=== PATIENT | female | born 1960 | race Caucasian/White ===

== ENCOUNTER 2017-06-02 16:30 | Emergency (ER) | payer BC ==
[2017-06-02 16:44] VITALS: BP 134/86
[2017-06-02] MEDS ORDERED: Doxycycline 100 MG Cap PO ONE (17:50)
--- NOTE | 2017-06-02 18:33 | EDM.PDOC ---
ED HPI GENERAL MEDICAL PROBLEM - General Chief Complaint: General Stated Complaint: FEVER FOR 5 DAYS Time Seen by Provider: 06/02/17 16:46 Source of Information: Reports: Patient History Limitations: Reports: No Limitations - History of Present Illness INITIAL COMMENTS - FREE TEXT/NARRATIVE: The patient is a 56-year-old female with a chief complaint of right foot pain and rash and feeling ill. She states that she's been having trouble with the foot for a couple of months. She states that she had what looked like insect bites on one of the toes initially that were filled with clear fluid. At some point these were lanced. Since then, this last week, she's had increased redness and pain in the foot. She saw her primary care provider who diagnosed cellulitis and put her on Bactrim. She states that she's also intermittently been using hydrocortisone and an antifungal on her foot. She comes in for evaluation today because she's been feeling ill for a few days. She's had fever as high as 101. She also has been nauseated. She's had about 1 episode of vomiting per day. Feels generally weak with malaise. No cough or shortness of breath. No abdominal pain or diarrhea. No urinary symptoms. The foot redness has not improved on Bactrim. She hasn't had any more of the vesicle lesions. No known tick bites. No additional rash. She also has a mild frontal headache that is sharp behind her eyes. No true neck stiffness though she has diffuse musculoskeletal pains. Treatments GEOLOGICAL SPECIALIST: Reports: Acetaminophen - Related Data Allergies Allergy/AdvReac Type Severity Reaction Status Date / Time No Known Allergies Allergy Verified 06/02/17 16:44 Home Meds: Home Meds Doxycycline [Vibramycin] 100 mg PO BID #20 cap 06/02/17 [Rx] valACYclovir [Valtrex] 1,000 mg PO TID #30 tablet 06/02/17 [Rx] Past Medical History Dermatologic History: Reports: Cellulitis - Past Surgical History Female Surgical History: Reports: Tubal Ligation Musculoskeletal Surgical History: Reports: Other (See Below) Other Musculoskeletal Surgeries/Procedures:: ACL repair Social & Family History - Tobacco Use Smoking Status *Q: Never Smoker Second Hand Smoke Exposure: No - Caffeine Use Caffeine Use: Reports: Coffee - Recreational Drug Use Recreational Drug Use: No ED ROS GENERAL - Review of Systems Review Of Systems: See Below Constitutional: Denies: Fever HEENT: Reports: No Symptoms Respiratory: Denies: Shortness of Breath Cardiovascular: Denies: Chest Pain Endocrine: Reports: No Symptoms GI/Abdominal: Reports: Nausea. Denies: Abdominal Pain : Reports: No Symptoms Musculoskeletal: Reports: Muscle Pain Skin: Reports: Rash ED EXAM, GENERAL - Physical Exam Exam: See Below Exam Limited By: No Limitations General Appearance: Alert, WD/WN, No Apparent Distress Eye Exam: Bilateral Eye: EOMI, Normal Inspection, PERRL Ears: Normal External Exam Nose: Normal Inspection Throat/Mouth: Normal Inspection, Normal Oropharynx, Normal Voice, No Airway Compromise Head: Atraumatic, Normocephalic Neck: Normal Inspection, Supple, Non-Tender, Full Range of Motion, Other (Mild bilateral trapezius tenderness, no neck stiffness) Respiratory/Chest: No Respiratory Distress, Lungs Clear, Normal Breath Sounds, No Accessory Muscle Use Cardiovascular: Normal Peripheral Pulses, Regular Rate, Rhythm, No Edema, No Murmur GI/Abdominal: Soft, Non-Tender, No Distention. No: Rebound Back Exam: Normal Inspection Extremities: Other (Right lower extremity: Confluent erythema, warmth, and tenderness affecting the superior surface of her right foot extending just proximal to the ankle. No fluctuance. No discrete vesicles or wounds.) Neurological: Alert, Oriented, Normal Cognition, No Motor/Sensory Deficits Psychiatric: Normal Affect, Normal Mood Skin Exam: Warm, Dry, Intact, Normal Color, No Rash Course - Vital Signs Last Recorded V/S: Last Vital Signs Temp 37.6 C 06/02/17 16:41 Pulse 101 H 06/02/17 16:41 Resp 18 06/02/17 16:41 BP 134/86 06/02/17 16:41 Pulse Ox 95 06/02/17 16:41 - Orders/Labs/Meds Orders: Active Orders 24 hr Category Date Time Status CULTURE BLOOD [BC] Stat Lab 06/02/17 17:00 Received CULTURE BLOOD [BC] Stat Lab 06/02/17 17:07 Received Blood Culture x2 Reflex Set [OM.PC] Stat Oth 06/02/17 16:47 Ordered Labs: Laboratory Tests 06/02/17 06/02/17 06/02/17 Range/Units 17:00 17:00 17:00 WBC 3.39 L (3.98-10.04) K/mm3 RBC 4.69 (3.98-5.22) M/mm3 Hgb 14.2 (11.2-15.7) gm/L Hct 41.5 (34.1-44.9) % MCV 88.5 (79.4-94.8) fl MCH 30.3 (25.6-32.2) pg MCHC 34.2 (32.2-35.5) g/dl RDW Std Deviation 40.0 (36.4-46.3) fL Plt Count 217 (182-369) K/mm3 MPV 9.2 L (9.4-12.3) fl Neut % (Auto) 80.5 H (34.0-71.1) % Lymph % (Auto) 13.9 L (19.3-51.7) % [place] % (Auto) 5.3 (4.7-12.5) % Eos % (Auto) 0 L (0.7-5.8) Baso % (Auto) 0.3 (0.1-1.2) % Neut # (Auto) 2.73 (1.56-6.13) K/mm3 Lymph # (Auto) 0.47 L (1.18-3.74) K/mm3 [place] # (Auto) 0.18 L (0.24-0.36) K/mm3 Eos # (Auto) 0.00 L (0.04-0.36) K/mm3 Baso # (Auto) 0.01 (0.01-0.08) K/mm3 Manual Slide Review Normal smear Sodium 138 (136-145) mEq/L Potassium 4.2 (3.5-5.1) mEq/L Chloride 101 (98-107) mEq/L Carbon Dioxide 25 (21-32) mEq/L Anion Gap 16.2 H (5-15) BUN 17 (7-18) mg/dL Creatinine 1.1 H (0.55-1.02) mg/dL Est Cr Clr Drug Dosing 48.36 mL/min Estimated GFR (MDRD) 52 (>60) mL/min BUN/Creatinine Ratio 15.5 (14-18) Glucose 121 H (74-106) mg/dL Lactic Acid 1.5 (0.4-2.0) mmol/L Calcium 8.7 (8.5-10.1) mg/dL Total Bilirubin 0.3 (0.2-1.0) mg/dL AST 33 (15-37) U/L ALT 40 (14-59) U/L Alkaline Phosphatase 94 (46-116) U/L Total Protein 7.2 (6.4-8.2) g/dl Albumin 3.6 (3.4-5.0) g/dl Globulin 3.6 gm/dL Albumin/Globulin Ratio 1.0 (1-2) Meds: Medications Discontinued Medications Generic Name Dose Route Start Last Admin Trade Name Elizabeth PRN Reason Stop Dose Admin Doxycycline Hyclate 100 mg 06/02/17 17:50 06/02/17 18:02 Vibramycin PO 06/02/17 17:51 100 mg ONETIME ONE Administration Valacyclovir HCl 1,000 mg 06/02/17 18:39 06/02/17 18:51 Valtrex PO 06/02/17 18:40 Not Given ONETIME ONE - Re-Assessments/Exams Free Text/Narrative Re-Assessment/Exam: 06/03/17 13:26 Suspect treatment failure of the Bactrim. Possible zoster but this would not explain systemic symptoms. Possible zoster or herpetic francis initially that became superinfected. There are no vesicular lesions at this time. However given history of vesicles and treatment failure will add valacyclovir. Discussed strict return precautions for an ED recheck if she is not improving tomorrow. Departure - Departure Time of Disposition: 18:30 Disposition: Home, Self-Care 01 Clinical Impression: Cellulitis of right foot - Discharge Information Prescriptions: Doxycycline [Vibramycin] 100 mg PO BID #20 cap valACYclovir [Valtrex] 1,000 mg PO TID #30 tablet Instructions: Cellulitis, Adult Referrals: PCP,None [Primary Care Provider] - Forms: ED Department Discharge Additional Instructions: 1. Take doxycycline and valacyclovir as prescribed 2. Follow up with a primary doctor. Call [phone] if you'd like to schedule with a provider here 3. Return to the ED if you have worsening redness/pain of the foot, or if you continue to have fever after tomorrow, or for any other concerning symptoms - My Orders Last 24 Hours: My Active Orders 06/02/17 16:47 Blood Culture x2 Reflex Set [OM.PC] Stat 06/02/17 17:00 CULTURE BLOOD [BC] Stat 06/02/17 17:07 CULTURE BLOOD [BC] Stat - Assessment/Plan Last 24 Hours: My Active Orders 06/02/17 16:47 Blood Culture x2 Reflex Set [OM.PC] Stat 06/02/17 17:00 CULTURE BLOOD [BC] Stat 06/02/17 17:07 CULTURE BLOOD [BC] Stat
[2017-06-02] MEDS ORDERED: valACYclovir 1,000 MG Tab PO ONE (18:39)
[2017-06-03] MEDS ORDERED: valACYclovir 1,000 MG Tab PO SCH (09:00)
== END 2017-06-02 18:50 | disposition home or self-care (01) ==
LOC: JD.ED 16:30
DX: L03.115 Cellulitis of right lower limb (principal)
CPT/HCPCS: 36415; 80053; 83605; 85025; 87040; 99283; A9270